=== PATIENT | male | born 1960 | race Caucasian/White ===

== ENCOUNTER 2019-10-03 06:31 | Emergency (ER) | payer OTHER ==
[~2019-10-03] VITALS: Ht 185.4 cm; Wt 90.7 kg
[2019-10-03] MEDS ORDERED: LIDOCAINE HCL 1% LOCAL INJ 20 ML VIAL ONE ×2 (06:47→07:30)
--- NOTE | 2019-10-03 07:22 | Emergency Department Note ---
History of Present Illnes History of Present Illness Chief Complaint: Skin Rash or Abscess History of Present Illness This is a 58 year old male , with no significant past medical history, who presents with a four-day history of worsening pain and swelling in the right inner gluteal area. There's been no drainage. The area is painful to touch, and there's been no drainage. Patient denies any history of previous abscesses. He denies any fever or chills, but he has been having some dry heaving. 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 He denies any other trauma to the buttocks. 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 Required: No Onset (how long ago): day(s) (4) Location: right inner gluteal area, near the rectum, but not involving the sphincter Quality: sharp, stabbing, aching Radiation: Reports non-radiation Severity: moderate Onset quality: sudden Duration (how long): day(s) (4) Timing of current episode: constant Progression: worsening Chronicity: new Context: Reports recent surgery (shoulder surgery 6 weeks ag0) Treatments prior to arrival: other (Tylenol) Risk factors: cycling on hard bicycle seat for 30 - 40 miles at a time Past Medical/Family History Physician Review I have reviewed the patient's past medical and family history. Any updates have been documented here. Past Medical History Recent Fever: No Clinical Suspicion of Infectio: Yes New/Unexplained Change in Ment: No Past Medical History: None Other Surgery: SHOULDER, KNEE, Social History Smoking Cessation: Never Smoker Counseling Performed: No Alcohol Use: Occasional Any Illegal Drug Use: No Physically hurt or threatened: No Family History Family history of heart diseas: No Other Any Pre-Existing Lines (PICC,: No Is patient up to date on immun: Yes Review of Systems Review of Systems Constitutional: Reports no symptoms; Denies chills, Denies fever, Denies weakness Cardiovascular: Denies chest pain, Denies palpitations Respiratory: Reports no symptoms Gastrointestinal: Reports nausea, Reports other (dry heaves) Genitourinary: Reports no symptoms Integumentary: Reports change in color, Reports other (red, tender lump in right inner gluteal cleft) Review of other systems: All other systems negative Physical Exam Related Data Allergies: Coded Allergies: No Known Allergies (Unverified , 10/03/19) Vital signs reviewed: Yes Physical Exam CONSTITUTIONAL Constitutional: Present well-developed, Present well-nourished; Absent ill appearing HENT HENT: Present normocephalic, Present atraumatic, Present oropharynx clear/m oist, Present nose normal HENT L/R: Present left ext ear normal, Present right ext ear normal EYES Eyes: Reports PERRL, Reports conjunctivae normal NECK Neck: Present ROM normal, Present supple PULMONARY Pulmonary: Present effort normal, Present breath sounds normal CARDIOVASCULAR Cardiovascular: Present regular rhythm, Present heart sounds normal, Present capillary refill normal, Present normal rate GASTROINTESTINAL Abdominal: Present soft, Present nontender, Present bowel sounds normal GENITOURINARY SKIN Skin: Present erythema, Present other (3 cm, oval shaped, erythematous, tender, raised area in right inner gluteal fold, near the rectal sphincter, but not involving the sphincter, slightly fluctuant, without drainage; consistent with a perirectal abscess.) MUSCULOSKELETAL NEUROLOGICAL PSYCHOLOGICAL Procedures Incision and Drain Emergent situation: Yes Type of anesthesia: local Risks and benefits discussed: Yes Verbal consent obtained: Yes Written consent obtained: No Consent given by: patient Prepped and draped in sterile: Yes Two patient identifiers confir: name, date of Identity confirmed by: patient Procedure verified: Yes Side verified: yes Site verified: yes Site marked: yes Type: abscess Size: 3 cm Site: anogenital (right perirectal area) Skin preparation: Betadine Anesthesia method: local infiltration (1% Lidocaine - 10 ml) Patient sedated: No Needle aspiration: No Incision type: single w marsupialization Incision depth: muscle Scalpel blade: 10 Wound management: probed and deloculated, irrigated with saline Drainage: serosanguinous Drainage amount: scant Wound treatment: wound left open Packing used: 04/03 in gauze Patient tolerance: tolerated well Procedure attestation: I performed the procedure Assessment & Plan Medical Decision Making MDM - Encourage warm tub soaks, as often as possible. Also, apply a heating pad to the area frequently, to help soften the abscess and promote further drainage. - You may take Ibuprofen 200 mg - 3 tabs (600 mg) every 6 hours, as needed, for pain and inflammation. - Follow-up if you develop worsening symptoms, including: fever, chills, vomiting, worsening pain, etc. Assessment & Plan Final Impression: (1) Perirectal abscess Depart Disposition: HOME, SELF-[facility] Meds Active Scripts Acetaminophen With Codeine (TYLENOL WITH CODEINE #3 TABLET) 1 Each Tablet, 1-2 TAB PO Q6H PRN for pain, #20 TAB 0 Refills Prov:JOANA MONTES MD 10/03/19 Cephalexin (CEPHALEXIN) 500 Mg Capsule, 1 TAB PO TID for infection for 10 Days, #30 CAP 0 Refills Prov:JOANA MONTES MD 10/03/19 Medications in the ED Lidocaine HCl 20 ml [facility]-MED ONCE .ROUTE ; Start 10/03/19 at 06:47; Stop 10/03/19 at 06:43; Status DC JOANA MONTES MD Oct 03, 2019 07:22
[2019-10-03] MEDS ORDERED: HYDROCODONE/APAP 5MG-325MG TAB ONE (07:29)
[2019-10-03] MEDS ORDERED: ONDANSETRON HCL 4 MG ORAL DISINTEGRATING TAB ONE (07:29)
[2019-10-03] MEDS ORDERED: ONDANSETRON HCL 4 MG ORAL DISINTEGRATING TAB PO ONE (07:30)
[2019-10-03] MEDS ORDERED: CEPHALEXIN500 MG PO (07:57)
[2019-10-03] MEDS ORDERED: TYLENOL WITH C1 EACH PO (07:58)
[2019-10-03] MEDS ORDERED: LIDOCAINE HCL 1% LOCAL INJ 20 ML VIAL INJ ONE (08:30)
== END 2019-10-03 08:44 | disposition home or self-care (01) ==
LOC: FSED 07:55
DX: K61.1 Rectal abscess (principal); R11.0 Nausea
CPT/HCPCS: 10060; 99283; J2001; Q0162

== ENCOUNTER 2019-10-29 06:15 | Emergency (ER) | payer OTHER ==
[~2019-10-29] VITALS: Ht 188 cm; Wt 90.7 kg
[~2019-10-29 06:15] MED LIST: CEPHALEXIN500 MG PO; TYLENOL WITH C1 EACH PO
--- NOTE | 2019-10-29 06:17 | Emergency Department Note ---
History of Present Illnes History of Present Illness History of Present Illness This is a 58 year old male has boil on his right medial knee about 1 week (He called it spider bite), he "popped" opened with drainage few days ago but it is not getting better. He was dx with COVID few days ago, currently on isolation Historian: Patient Arrival Mode: Car Dice Table Person Required: No Onset (how long ago): week(s) Radiation: Reports non-radiation Severity: moderate Onset quality: gradual Duration (how long): week(s) Timing of current episode: constant Progression: worsening Context: Reports recent illness Relieving factors: none, immobilization Exacerbating factors: none, movement Treatments prior to arrival: none Past Medical/Family History Physician Review I have reviewed the patient's past medical and family history. Any updates have been documented here. Past Medical History Past Medical History: None Other Surgery: SHOULDER, KNEE, Review of Systems Review of Systems Constitutional: Reports fever (due to COVID) EENTM: Reports no symptoms Cardiovascular: Reports no symptoms Respiratory: Reports no symptoms Gastrointestinal: Reports no symptoms Genitourinary: Reports no symptoms Musculoskeletal: Reports no symptoms Integumentary: Reports no symptoms Neurological: Reports no symptoms Psychological: Reports no symptoms Endocrine: Reports no symptoms Hematological/Lymphatic: Reports no symptoms Physical Exam Related Data Allergies: Coded Allergies: No Known Allergies (Unverified , 10/03/19) Vital signs reviewed: Yes Physical Exam CONSTITUTIONAL Constitutional: Present well-developed, Present well-nourished HENT HENT: Present normocephalic, Present atraumatic, Present oropharynx clear/moist, Present nose normal HENT L/R: Present left ext ear normal, Present right ext ear normal EYES Eyes: Reports PERRL, Reports conjunctivae normal NECK Neck: Present ROM normal PULMONARY Pulmonary: Present effort normal, Present breath sounds normal CARDIOVASCULAR Cardiovascular: Present regular rhythm, Present heart sounds normal, Present capillary refill normal, Present normal rate GASTROINTESTINAL Abdominal: Present soft, Present nontender, Present bowel sounds normal GENITOURINARY Genitourinary: Present exam deferred SKIN Skin: Present warm, Present dry, Present rash (erythema lesion right medial knee 3 x 3 cm, tender, small opening with oozing fluid, surrounding redness, no fluctulent), Present lesion MUSCULOSKELETAL Musculoskeletal: Present ROM normal NEUROLOGICAL Neurological: Present alert, Present oriented x 3, Present no gross motor or sensory deficits PSYCHOLOGICAL Psychological: Present mood/affect normal, Present judgement normal Assessment & Plan Medical Decision Making MDM abscess with cellulitis, already drained Assessment & Plan Final Impression: (1) Cellulitis and abscess of right lower extremity Depart Disposition: HOME, [facility] Meds Active Scripts Ibuprofen (IBUPROFEN IB) 200 Mg Tablet, 3 TAB PO Q6H PRN for pain, #60 Prov:JOSE MARIA MATOS MD 10/29/19 Acetaminophen/Codeine* (TYLENOL # 3*) 1 Ea Tab, 1 TAB PO Q4HR PRN for pain or cough, #30 Prov:JOSE MARIA MATOS MD 10/29/19 Doxycycline Hyclate (DOXYCYCLINE HYCLATE) 100 Mg Capsule, 100 MG PO BID, #20 TAB 0 Refills Prov:JOSE MARIA MATOS MD 10/29/19 Clindamycin Hcl (CLINDAMYCIN HCL) 300 Mg Capsule, 300 MG PO Q6H, #40 Prov:JOSE MARIA MATOS MD 10/29/19 Discontinued Scripts Acetaminophen With Codeine (TYLENOL WITH CODEINE #3 TABLET) 1 Each Tablet, 1-2 TAB PO Q6H PRN for pain, #20 TAB 0 Refills Prov:JOANA MONTES MD 10/03/19 Cephalexin (CEPHALEXIN) 500 Mg Capsule, 1 TAB PO TID for infection for 10 Days, #30 CAP 0 Refills Prov:JOANA MONTES MD 10/03/19 JOSE MARIA MATOS MD Oct 29, 2019 06:17
[2019-10-29] MEDS ORDERED: CLINDAMYCIN HCL 150 MG CAP PO ONE (06:30)
[2019-10-29] MEDS ORDERED: CEFTRIAXONE SOD 1 GM VIAL IM ONE (06:30)
[2019-10-29] MEDS ORDERED: IBUPROFEN IB200 MG PO (06:37)
[2019-10-29] MEDS ORDERED: TYLENOL # 31 EA PO (06:37)
[2019-10-29] MEDS ORDERED: DOXYCYCLINE HY100 MG PO (06:37)
[2019-10-29] MEDS ORDERED: CLINDAMYCIN HC300 MG PO (06:37)
[2019-10-29] MEDS ORDERED: CEFTRIAXONE SOD 1 GM VIAL ONE (06:52)
[2019-10-29] MEDS ORDERED: LIDOCAINE HCL 1% LOCAL INJ 20 ML VIAL ONE (06:53)
[2019-10-29 07:08] VITALS: BP 153/80
--- OUTSIDE RECORDS SUMMARY | 2019-10-29 21:07 | XMS REPORT | Clinical Summary ---
Author Author [facility] [place] [facility] Address Unknown Phone Unavailable Care Team Providers Care Supervisor Plastics Name Role Phone Tanvir Dunn MD PCP Allergies No Known Allergies Medications End Date Status Medication Sig Dispensed Refills Start Date Active gabapentin (Neurontin) Take 1 tablet 30 capsule 0 0 400 mg capsule morning of 0 surgery po with a sip of water, then take 1 tablet po qhs Active celecoxib (CeleBREX) 200 Take 400mg 60 capsule 0 0 202 MG capsule morning of 0 surgery with a sip of water, then take 1 tablet po BID 09/11/2019 promethazine (PHENERGAN) Take 1 tablet 10 tablet 0 25 MG tablet (25 mg total) 0 by mouth every 6 (six) hours as needed for nausea for up to 30 days. 08/19/2019 cephalexin (KEFLEX) 500 1 po after 4 capsule 0 MG capsule surgery with 0 pm meal and tid afterwards 09/12/2019 HYDROcodone-acetaminophen chronic pain. 20 tablet 0 ([place]) 10-325 mg per 1 PO Q 4-6 H 0 tabletIndications: PRN PAIN chronic pain Active Problems Problem Noted Date Primary osteoarthritis of left shoulder 08/05/2019 Overview: Added automatically from request for lee rgery [id number] Resolved Problems Problem Noted Date Resolved Date Loose body of left shoulder 08/05/2019 08/17/2019 Overview: Added automatically from request for jesus hammondery [id number] Partial nontraumatic rupture of rotator cuff, left 020 08/17/2019 Overview: Added automatically from request for lee rgery [id number] Encounters Care Team Description Date Type Specialty Glenys Sauceda MA Primary osteoarthritis of left shoulder (Primary Dx); Loose body of left shoulder 10/21/2019 Orders Only Orthopedic Surgery Jeremías, Milton R., MD Loose body of left shoulder (Primary Dx) ; Primary osteoarthritis of left shoulder 09/29/2019 Office Visit Orthopedic Surgery 09/29/2019 Travel Milton Veronica MD Primary osteoarthritis of left shoulder (Primary Dx); Loose body of left shoulder; Partial nontraumatic rupture of rotator cuff, left 08/20/2019 Office Visit Orthopedic Surgery 08/20/2019 Travel Debbie Rudd RN 08/18/2019 Telephone Anesthesiology Milton Veronica MD Left shoulder arthroscopy with loose bod y removal, rotator cuff repair, graft augmentation, bone marrow aspiration/injection, biceps tenodesis 08/17/2019 Surgery General Surgery Casey Hernandez MD Maxwell, Matthew John 08/17/2019 Anesthesia General Surgery Event Milton Veronica MD Primary osteoarthritis of left shoulder; Loose body of left shoulder; Partial nontraumatic rupture of rotator cuff, left 08/17/2019 Hospital General Surgery Encounter 08/17/2019 Travel Glenys Sauceda MA 08/12/2019 Refill Orthopedic Surgery Milton Veronica MD Pre-op testing (Primary Dx) 08/10/2019 Pre-Admit Pre-Admission Testi ng Testing Appointment 08/09/2019 Travel 08/06/2019 Travel Glenys Sauceda MA 08/05/2019 Orders Only Orthopedic Surgery Glenys Sauceda MA Primary osteoarthritis of left shoulder (Primary Dx); Loose body of left shoulder; Partial nontraumatic rupture of rotator cuff, left 08/05/2019 Prep for Orthopedic Surgery Surgery Milton Veronica MD Primary osteoarthritis of left shoulder (Primary Dx); Loose body in joint of left shoulder region; Partial nontraumatic rupture of rotator cuff, left 08/04/2019 Office Visit Orthopedic Surgery 08/04/2019 Travel Milton Veronica MD Primary osteoarthritis, left shoulder 07/30/2019 Hospital Radiology Encounter Milton Veronica MD Primary osteoarthritis, left shoulder 07/30/2019 Hospital Radiology Encounter 07/30/2019 Travel 07/29/2019 Travel Milton Veronica MD Primary osteoarthritis, left shoulder (P rimary Dx) 06/21/2019 Transcribe Access Orders 06/21/2019 Travel 06/18/2019 Travel Milton Veronica MD Primary osteoarthritis of left shoulder (Primary Dx); Left shoulder pain, unspecified chronicity 06/09/2019 Office Visit Orthopedic Surgery 06/09/2019 Travel after 10/28/2018 Family History Medical History Relation Name Comments Alcohol abuse Father No Known Problems Mother Relation Name Status Comments Father Mother Social History Date Tobacco Use Types Packs/Day Years Used Never Smoker 0 0 Smokeless Tobacco: Never Used Drinks/Week oz/Week Comments Alcohol Use Never Sex Assigned at Date Recorded Not on file Industry Job Start Date Occupation Not on file Not on file Not on file Travel End Travel History Travel Start No recent travel history available. Date Recorded COVID-19 Exposure Response 09/29/2019 1:24 PM CDT In the last month, have you been in contact with No / Unsure someone who was confirmed or suspected to have Coronavirus / COVID-19? Last Filed Vital Signs Reading Time Taken Comments Vital Sign 134/78 09/29/2019 1:48 PM CDT Blood Pressure 65 09/29/2019 1:48 PM CDT Pulse 36.1 C (97 F) 08/17/2019 1:30 PM CDT Temperature 16 08/17/2019 1:30 PM CDT Respiratory Rate 96% 08/17/2019 1:30 PM CDT Oxygen Saturation - - Inhaled Oxygen Concentration 90.7 kg (200 lb) 09/29/2019 1:48 PM CDT Weight 188 cm (6' 2") 09/29/2019 1:48 PM CDT Height 25.68 09/29/2019 1:48 PM CDT Body Mass Index Plan of Treatment Care Team Description [place] [id number] [address] [phone] 11/10/2019 Office Visit Orthopedic Surgery Health Maintenance Due Date Last Done Comments COLONOSCOPY SCREENING 12/11/2009 SHINGLES VACCINES (#1) 12/11/2009 INFLUENZA VACCINE 10/30/2019 Implants Device Identifier Shelf Expiration Date Model / Serial / L ot Implanted Type Area Manufactur er 04/19/2022 [id number] / / [id number] Tendon Jeronimo - [id number] Left: Shou lder Implanted: Qty: 1 on 08/17/2019 by IMPLANT Milton Veronica MD at [facility] [employer] 12/28/2021 [id number] / / [id number] Arthro Bioindctive Implant W Del 1 IPM Lef t: Shoulder Large - [id number] IMPLANT Implanted: Qty: 1 on 08/17/2019 by Milton Navarro MD at [facility] 03/15/2022 [id number] / / [id number] Bone Anchors 3 W Arthro Del Sys IPM Left: Shoulder Advncd - [id number] IMPLANT Implanted: Qty: 1 on 08/17/2019 by Milton Navarro MD at [facility] 09/27/2021 [id number] / / [id number] [place] Sut Lupine Br W/ Ds Orthopedic Full Body: DEP UY Orthocord - [id number] Trauma Shoulder MITEK Implanted: Qty: 1 on 08/17/2019 by Implants Milton Veronica MD at [facility] Procedures Comments Procedure Name Priority Date/Time Associated Diag nosis UT AN ELECTIVE Routine 08/17/2019 ENDOTRACHEAL AIRWAY 10:22 AM CDT ARTHROSCOPY, SHOULDER 08/17/2019 Primary osteoar thritis of 10:00 AM CDT left shoulder Loose body of left shoulder Partial nontraumatic rupture of rotator cuff, left Case Notes Needed Christian [place] Mitek anchors, AJ [employer] BMAC, Amanda Trinkle Regeneten allograft, EST 90 MINUTES Special Needs Needed Christian [place] Mitek anchors (CHRISTIAN CONFIRMED 5/15 FOR 08/16 1030 CASE), AJ [employer] BMAC (AJ CONFIRMED 5/15 FOR 08/16 1030 CASE), Amanda Trinkle Regeneten allograft (MICHELLE CONFIRMED 515 FOR 08/16 1030 CASE), EST 90 MINUTES UT AN PERIPHERAL BLOCK Routine 08/17/2019 PROCEDURE FOR PAIN 9:39 AM CDT COVID-19 QUALITATIVE PCR Routine 08/10/2019 Pre-o p testing 8:54 AM CDT HC COMPLETE BLD COUNT Routine 08/10/2019 Pre-op t esting W/AUTO DIFF 8:40 AM CDT MRI SHOULDER W IA Routine 07/30/2019 Primary oste oarthritis, CONTRAST LEFT 11:09 AM CDT left shoulder FL ARTHROGRAM SHOULDER Routine 07/30/2019 Primary osteoarthritis, LEFT 9:05 AM CDT left shoulder XR SHOULDER 2+ VW LEFT Routine 06/09/2019 Left sh oulder pain, 3:47 PM CDT unspecified chronicity after 10/28/2018 Results * Airway (08/17/2019 10:22 AM CDT) Narrative Performed At Donn Mena CRNA 2019 10:23 AM Airway Date/Time: 08/17/2019 10:22 AM Performed by: Donn Mena CR NA Authorized by: Casey Hernandez MD Location: OR Urgency: Elective Difficult Airway: No Resident/CNC MILL OPERATOR/AA: Donn Mena CRNA Performed by: resident/CNC MILL OPERATOR/AA Preoxygenated with 100% O2: Yes C-spine Precautions Maintained Througho ut: Yes Mask Ventilation: Not attempted Final Airway Type: Endotracheal airwa y Final Endotracheal Airway: ETT Cuffed: Yes Technique Used: Direct laryngoscopy Devices/Methods Used in Placement: Teodoro ugie Insertion Site: Oral Blade Type: Flores Laryngoscope Blade/Videolaryngoscope Bl irving Size: 2 ETT Size (mm): 7.5 Cuff at minimum occlusion pressure: Yes Measured from: Lips ETT to Lips (cm): 23 Placement Verified by: CO2 detection an d equal breath sounds Laryngoscopic view: Grade IIb - view of arytenoids or posterior of glottis only Rapid Sequence Induction (RSI): No Modified RSI: Yes Number of Attempts at Approach: 1 * Peripheral Block (08/17/2019 9:39 AM CDT) Narrative Performed At Casey Hernandez MD 08/17/2019 9:40 AM Peripheral Block Performed by: Casey Hernandez MD Authorized by: Casey Hernandez MD Patient Location: Pre-op Start Time: 08/17/2019 9:25 AM End Time: 08/17/2019 9:29 AM Reason for Block: at surgeon's request, post-op pain management, procedure for pain Staff: Anesthesiologist: Casey Hernandez rd, MD Performed by: Anesthesiologist Preprocedure: patient identified, IV ch ecked, site and side verified, risks and benefits discussed, procedure verified, surgical consent complete, patient position confirmed, m onitors and equipment checked, pre-op evaluation complete and site kecia bloom Peripheral Nerve Block: Patient Position: Supine Prep: ChloraPrep Monitoring: Blood pressure monitori ng, continuous pulse oximetry and heart rate Block Type: Interscalene Laterality: Left Injection Technique: Single injection Procedures: ultrasound guided Ultrasound documentation: Still image s obtained and stored Anesthesia block local: Exparel. Needle: Needle Type: Short-bevel Needle Gauge: 21 G Needle Length: 10 cm Assessment: Injection Assessment: Visualized ne edle/local anesthetic surrounding nerve, visualized pertinent vascular st ructures and nerves, needle tip visualized at all times during injectio n of medication, no symptoms of intraneural/intravenous injection and i ntermittent aspiration during local anesthetic administration Paresthesia Pain: None Heart Rate Change: No Slow Fractionated Injection: Yes Block outcome: No apparent complica tions, patient comfortable and patient tolerated procedure well Notes: Sterile technique used with hat, ovidio ves and mask * COVID-19 qualitative PCR (08/10/2019 8:54 AM CDT) Interpretation Negative results do not [facility] preclude 2019-nCoV infection [facility] and should not be used as the HOSPITAL sole basis for treatment or other patient management decisions. Negative results must be combined with clinical observations, patient history, and epidemiological information. COVID-19 Not-Detected Not-Detected [facility] qualitative PCR [facility] result HOSPITAL COVID-19 See link below for PDF Lab [facility] qualitative PCR ReportComment: Case Number: [facility] [id number] [facility]PITAL Specimen Performing Organization Address City/State/Zipcode Ph one Number [facility] DEPARTMENT OF [address] [place] [address] PATHOLOGY AND GENOMIC MEDICINE [address] * CBC with platelet and differential (08/10/2019 8:40 AM CDT) WBC 5.59 4.50 - 11.00 k/uL [facility] RBC 5.48 4.40 - 6.00 m/uL [facility] HGB 16.9 14.0 - 18.0 g/dL [facility] HCT 48.8 41.0 - 51.0 % [facility] MCV 89.1 82.0 - 100.0 fL [facility] MCH 30.8 27.0 - 34.0 pg [facility] MCHC 34.6 31.0 - 37.0 g/dL [facility] RDW - SD 40.2 37.0 - 55.0 fL [facility] MPV 8.7 (L) 8.8 - 13.2 fL [facility] Platelet count 168 150 - 400 k/uL [facility] Nucleated RBC 0.00 /100 WBC [facility] Neutrophils 59.4 39.0 - 69.0 % [facility] Lymphocytes 24.0 (L) 25.0 - 45.0 % [facility] Monocytes 8.4 0.0 - 10.0 % [facility] Eosinophils 6.6 (H) 0.0 - 5.0 % [facility] Basophils 1.1 (H) 0.0 - 1.0 % [facility] Immature 0.5Comment: "Immature 0.0 - 1.0 % [facility] granulocytes granulocytes" (promyelocytes, [facility] THE myelocytes, metamyelocytes) [facility] Specimen Blood Performing Organization Address [facility] Ph one Number [facility] [place] [address], [address] [place] [address] PATHOLOGY AND GENOMIC MEDICINE [facility] THE [address] [facility] [phone] * MRI SHOULDER W IA CONTRAST LEFT (07/30/2019 11:09 AM CDT) Specimen Narrative Performed At EXAMINATION: MRI SHOULDER W IA CONTRAST LEFT RA [facility]ANT CLINICAL HISTORY: M19.012 Primary ost eoarthritis left shoulder, PRIMARY OSTEOARTHRITIS OF LEFT SHOULDER TECHNIQUE: Multiplanar multisequence MR images of the left shoulder were obtained with intra-articular contrast. COMPARISON: None. FINDINGS: Supraspinatus tendinosis, fra carlene, and moderate and high-grade partial-thickness tearing are seen at t he articular and bursal surface of the distal tendon. There is also partial thickness tearing of the anterior infraspinatus tendon footprint. Remainder of the rotator cuff is intact , and there is normal muscle bulk. Infraspinatus muscle is diffusely incre ased in signal, a finding related to denervation myositis secondary to a 23 x 14 x 14 mm ganglion within the spinoglenoid notch compressing the supr ascapular nerve. Tendinosis, partial tearing, and tenosy novitis of the long of the horizontal and proximal vertical segments of the long head biceps tendon. Chronic degeneration, fraying, tearing, and scar remodeling of the labrum in the superior, anterior, and posterior quadr ants. Mild osteoarthritis of the acromioclavi cular joint with inferior osteophyte. Acromion is type I. No inferior displac ement, downsloping, or os acromiale. No bursitis. Areas of cartilage thinning and focal f ull-thickness loss in the glenohumeral joint. Large crown osteophyte of the hu meral head. Smaller circumferential osteophyte of the glenoid rim. Joint is well-distended with contrast, and there is mild synovitis. A couple of subcentimeter ossified loose bodies are located within the subcoracoid bursa. IMPRESSION: 1. Chronic moderate and high-grade part ial-thickness tearing of the supraspinatus tendon. No full-thickness retracted tear. 2. Tendinosis and chronic partial thick ness tearing of the long of the biceps tendon with mild tenosynovitis. 3. Chronic multifocal labral degenerati on and nondisplaced tearing. 4. Moderately severe osteoarthrosis of the glenohumeral joint with mild synovitis and small ossified bodies in the subcoracoid bursa. 5. 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 Thank you for allowing us to participat e in the care of your patient. [facility]-[id number] Procedure Note Hm Interface, Radiology Results - 07/30/2019 11:41 AM CDT EXAMINATION: MRI SHOULDER W IA CONTRAST LEFT CLINICAL HISTORY: M19.012 Primary osteoarthritis left shoulder, PRIMARY OSTEOARTHRITIS OF LEFT SHOULDER TECHNIQUE: Multiplanar multisequence MR images of the left shoulder were obtained with intra-articular contrast. COMPARISON: None. FINDINGS: Supraspinatus tendinosis, fraying, and moderate and high-grade partial-thickness tearing are seen at the articular and bursal surface of the distal tendon. There is also partial thickness tearing of the anterior infraspinatus tendon footprint. Remainder of the rotator cuff is intact, and there is normal muscle bulk. Infraspinatus muscle is diffusely increased in signal, a finding related to denervation myositis secondary to a 23 x 14 x 14 mm ganglion within the spinoglenoid notch compressing the suprascapular nerve. Tendinosis, partial tearing, and tenosynovitis of the long of the horizontal and proximal vertical segments of the long head biceps tendon. Chronic degeneration, fraying, tearing, and scar remodeling of the labrum in the superior, anterior, and posterior quadrants. Mild osteoarthritis of the acromioclavicular joint with inferior osteophyte. Acromion is type I. No inferior displacement, downsloping, or os acromiale. No bursitis. Areas of cartilage thinning and focal full-thickness loss in the glenohumeral joint. Large crown osteophyte of the humeral head. Smaller circumferential osteophyte of the glenoid rim. Joint is well-distended with contrast, and there is mild synovitis. A couple of subcentimeter ossified loose bodies are located within the subcoracoid bursa. IMPRESSION: 1. Chronic moderate and high-grade parti al-thickness tearing of the supraspinatus tendon. No full-thickness retracted tear. 2. Tendinosis and chronic partial thickn ess tearing of the long of the biceps tendon with mild tenosynovitis. 3. Chronic multifocal labral degeneratio n and nondisplaced tearing. 4. Moderately severe osteoarthrosis of t he glenohumeral joint with mild synovitis and small ossified bodies in the subcoracoid bursa. 5. Spinoglenoid notch ganglion compressi ng the suprascapular nerve and causing infraspinatus denervation myositis. Thank you for allowing us to participate in the care of your patient. [facility]-[id number] Performing Organization Address City/State/Zipcode Ph one Number [facility] [address] [place] [address] * FL Arthrogram Shoulder Left (07/30/2019 9:05 AM CDT) Specimen Narrative Performed At EXAMINATION: FL ARTHROGRAM SHOULDER LEFT ALFRED Lucero CLINICAL HISTORY: M19.012 Primary ost eoarthritis left shoulder, PRIMARYU OSTEOARTHRITIS OF LEFT SHOULDER COMPARISON: None. TECHNIQUE: Informed consent was obtained after a d iscussion of the risks and benefits of the procedure. A preprocedure timeout w as performed. The left shoulder was sterilely prepped and draped in usual fashion. 1% buffered lidocaine was used for local anesthesia . Under fluoroscopic guidance, a 22-gauge spinal needle was inserted into the left glenohumeral joint. Approximately 10 cc of a mixture of dilute gadolinium solution and Omnipaque was injected und er intermittent fluoroscopy. The needle was then removed, and a bandage was applied. Preprocedural internal and external rot ation AP radiographs of the left shoulder, and spot fluoroscopic arthrog raphic images of the left shoulder in internal and external rotation, were th en obtained. Total fluoroscopy time: 1 minute 6 seco nds Total number of fluoroscopic images: 3 Arthrographic images demonstrate distri bution of contrast within the glenohumeral joint space, without contr ast entering the subacromial subdeltoid bursa to imply a full-thickness rotator cuff tear. The radiographs of the left shoulder demonstrate an old healed left proximal humeral fracture a nd degenerative arthritic changes in the glenohumeral and acromial clavicular wandy ints. IMPRESSION: Uncomplicated left shoulder arthrogram for MRI. The MR arthrogram will be reported separately. [id number] Procedure Note Hm Interface, Radiology Results Incoming - 07/30/2019 9:29 AM CDT EXAMINATION: FL ARTHROGRAM SHOULDER LEFT CLINICAL HISTORY: M19.012 Primary osteoarthritis left shoulder, PRIMARYU OSTEOARTHRITIS OF LEFT SHOULDER COMPARISON: None. TECHNIQUE: Informed consent was obtained after a discussion of the risks and benefits of the procedure. A preprocedure timeout was performed. The left shoulder was sterilely prepped and draped in usual fashion. 1% buffered lidocaine was used for local anesthesia. Under fluoroscopic guidance, a 22-gauge spinal needle was inserted into the left glenohumeral joint. Approximately 10 cc of a mixture of dilute gadolinium solution and Omnipaque was injected under intermittent fluoroscopy. The needle was then removed, and a bandage was applied. Preprocedural internal and external rotation AP radiographs of the left shoulder, and spot fluoroscopic arthrographic images of the left shoulder in internal and external rotation, were then obtained. Total fluoroscopy time: 1 minute 6 seconds Total number of fluoroscopic images: 3 Arthrographic images demonstrate distribution of contrast within the glenohumeral joint space, without contrast entering the subacromial subdeltoid bursa to imply a full-thickness rotator cuff tear. The radiographs of the left shoulder demonstrate an old healed left proximal humeral fracture and degenerative arthritic changes in the glenohumeral and acromial clavicular joints. IMPRESSION: Uncomplicated left shoulder arthrogram for MRI. The MR arthrogram will be reported separately. [id number] Performing Organization Address [facility] Ph one Number [facility] [address] [place] [address] * XR Shoulder 2+ Vw Left (06/09/2019 3:47 PM CDT) Specimen Narrative Performed At [facility] AP, axillary lateral, and outlet views of the left shoulder show significant degenerative changes with a large posterior glenoid osteophyte and an inferior humeral osteophyte. T he acromioclavicular joint is arthritic. The surrounding soft tissu es are normal. 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
--- OUTSIDE RECORDS SUMMARY | 2019-10-29 21:07 | XMS REPORT | Continuity of Care Document ---
Author Author [facility] t Organization [facility] Address [address] [place] [address] Phone Unavailable Care Team Providers Care Director [employer] Name Role Phone NONSTAFF PCP Unavailable Glenys Sauceda MA Attphys Unavailable Abdiel Corcoran MD Attphys Tobin BILLY, Debbie Attphys Unavailable David MILLS, Danny Peña Attphys Tanvir Lee Attphys MILTON CORCORAN Admphys Unavailable Payers Payer Name Policy Type Policy Number Effective Date Expiration Date [facility] Ppo [id number] [facility] MISC LIMITED BENEFIT PLANMISC LIMITED BE NEFIT PLANxxxxxxxxx1-PresentCommercial xxxxxxxxx 2018 00: 00:00 Ace Pacheco Problems Condition Name Condition Details Condition Category Status Onset Date Resolution Date Last Treatment Date Treating Clinician Comments Source Primary osteoarthritis of left shoulder Primary osteoarthrit is of left shoulder Disease Active 2019-08-05 00:00:00 Overv iew: Added automatically from request for surgery [id number] Ace Pacheco Perirectal abscess Problem Active [facility] Cellulitis Problem Active [facility] Cellulitis and abscess of right lower extremity Problem Active [facility] Loose body of left shoulder Loose body of left shoulder Disease Resolved 2019-08-05 00:00:00 2019-08-17 00:00:00 2019-08-17 12:13:39 Ace Pacheco Partial nontraumatic rupture of rotator cuff, left Par tial nontraumatic rupture of rotator cuff, left Disease Resolved 2019-08-05 00:00:00 2019-08-17 0 0:00:00 2019-08-17 12:13:40 Ace Pacheco Allergies, Adverse Reactions, Alerts This patient has no known allergies or adverse reactions. Family History Family Member Diagnosis Comments Start Date Stop Date Source Natural father Alcohol abuse Ace Pacheco Natural mother No Known Problems Loida ruthie Pacheco Social History Social Habit Start Date Stop Date Quantity Comments Source Sex Assigned At Loida Pacheco Exposure to SARS-CoV-2 (event) Not sure Ace Pacheco Alcohol intake 2019-09-29 00:00:00 2019-09-29 00:00:00 Lifetime non-drinker (finding) Ace Pacheco Smoking Status Start Date Stop Date Source Never smoker Ace Potts t Medications Ordered Medication Name Filled Medication Name Start Date Stop Da te Current Medication? Ordering Clinician Indication Dosage Frequency Signature (SIG) Comments Components Source Acetaminophen/Codeine Phosphate (Tylenol # 3*) 1 Ea TA B Acetaminophen/Codeine Phosphate (Tylenol # 3*) 1 Ea TAB 2019-10-29 06:37:00 Yes 1 Every 4 Hours as needed for Pain Or Cough [facility] Clindamycin Hcl Clindamycin Hcl 2019-10-29 06:37:00 Yes 300 Every 6 Hours [facility] Doxycycline Hyclate Doxycycline Hyclate 2019-10-29 06:37:00 Yes 100 Twice A Day [facility] Ibuprofen (Ibuprofen Ib) 200 Mg TABLET Ibuprofen (Ibuprofen Ib) 200 Mg TABLET 2019-10-29 06:37:00 Yes 3 Every 6 Hours as n eeded for Pain [facility] Acetaminophen With Codeine (Tylenol With Codeine #3 Ta blet) 1 Each TABLET Acetaminophen With Codeine (Tylenol With Codeine #3 Tablet) 1 Each TABLET 2019-10-03 07:58:00 2019-10-29 00:00:00 No Every 6 Hours as needed for Pain [facility] Cephalexin Cephalexin 2019-10-03 07:57:00 2019-10-29 00:00:00 No 1 Three Times A Day for Infection [facility] HYDROcodone-acetaminophen ([place]) 10-325 mg per tablet 2019-08-13 00:00:00 2019-09-12 23:59:00 No chronic pain chronic pain. 1 PO Q 4-6 H PRN PAIN Ace Pacheco gabapentin (Neurontin) 400 mg capsule 2019-08-12 00:00:00 Y es Take 1 tablet morning of surgery po with a sip of water, then take 1 tablet po qhs Ace Pacheco celecoxib (CeleBREX) 200 MG capsule 2019-08-12 00:00:00 Yes Take 400mg morning of surgery with a sip of water, then take 1 tablet po BID Ace Pacheco promethazine (PHENERGAN) 25 MG tablet 2019-08-12 00:00 :00 2019-09-11 23:59:00 No 25mg Q6H Take 1 tablet ( 25 mg total) by mouth every 6 (six) hours as needed for nausea for up to 30 days. Loida Pacheco cephalexin (KEFLEX) 500 MG capsule 2019-08-12 00:00:00 202 23:59:00 No 1 po after surgery with pm meal and tid afterwards Ace Pacheco Vital Signs Vital Name Observation Time Observation Value Comments Source Body Temperature 2019-10-29 07:08:00 98.9 [degF] [facility] Weight 2019-10-29 06:33:00 200 [lb_av] [facility] BMI (Body Mass Index) 2019-10-29 06:33:00 25.7 kg/m2 [facility] Weight 2019-10-03 07:09:00 200 [lb_av] [facility] BMI (Body Mass Index) 2019-10-03 07:09:00 26.4 kg/m2 [facility] Systolic blood pressure 2019-09-29 13:48:00 134 mm[Hg] Ace Pacheco Diastolic blood pressure 2019-09-29 13:48:00 78 mm[Hg] Ace Pacheco Heart rate 2019-09-29 13:48:00 65 /min Ace Pacheco Body height 2019-09-29 13:48:00 188 cm Ace Pacheco Body weight 2019-09-29 13:48:00 90.719 kg Ace Pacheco BMI 2019-09-29 13:48:00 25.68 kg/m2 Ace Pacheco Body temperature 2019-08-17 13:30:00 36.11 Marlee Hanny Pacheco Respiratory rate 2019-08-17 13:30:00 16 /min Hanny Pachceo Oxygen saturation in Arterial blood by Pulse oximetry 08-16 13:30:00 96 /min Ace Pacheco Procedures Procedure Date / Time Performed Performing Clinician Sourc e MN AN ELECTIVE ENDOTRACHEAL AIRWAY 2019-08-17 10:22:22 Balaji Mena ARTHROSCOPY, SHOULDER 2019-08-17 10:00:00 JeremíasMilton MN AN PERIPHERAL BLOCK PROCEDURE FOR PAIN 2019-08-17 09:39:1 3 Casey Hernandez COVID-19 QUALITATIVE PCR 2019-08-10 08:54:00 Milton Corcoran HC COMPLETE BLD COUNT W/AUTO DIFF 2019-08-10 08:40:00 Hester, Ro naljuan david Pacheco MRI SHOULDER W IA CONTRAST LEFT 2019-07-30 11:09:34 Milton Corcoran [place] ARTHROGRAM SHOULDER LEFT 2019-07-30 09:05:00 Milton Corcoran XR SHOULDER 2+ VW LEFT 2019-06-09 15:47:07 Milton Corcoran Plan of Care Planned Activity Planned Date Details Comments Source Future Scheduled Test 2019-10-30 00:00:00 INFLUENZA VACCINE [code = INFLUENZA VACCINE] Ace Pacheco Future Scheduled Test 2009-12-11 00:00:00 COLONOSCOPY SCREEN ING [code = COLONOSCOPY SCREENING] Ace Pacheco Future Scheduled Test 2009-12-11 00:00:00 SHINGLES VACCINES (#1) [code = SHINGLES VACCINES (#1)] Ace Pacheco Instructions Cellulitis [facility] Instructions Rash - Nonspecific [facility] Encounters Start Date/Time End Date/Time Encounter Type Admission Type [facility] Care Department Encounter ID Source 2019-10-29 06:20:00 2019-10-29 07:11:00 Departed Emergency Room [facility] [id number] [facility] 2019-10-03 07:55:00 2019-10-03 08:44:00 Departed Emergency Room [facility] [id number] [facility] 2019-09-29 00:00:00 2019-09-29 00:00:00 Outpatient JEREMÍAS, MILTON Graf [facility] [id number] [facility] 2019-08-20 00:00:00 2019-08-20 00:00:00 Outpatient JEREMÍAS, MILTON H [facility] [id number] [facility] 2019-08-17 00:00:00 2019-08-17 00:00:00 Outpatient JEREMÍAS, MILTON H [facility] [id number] [facility] 2019-08-10 00:00:00 2019-08-10 00:00:00 Outpatient JEREMÍAS, MILTON H [facility] [id number] [facility] 2019-08-04 00:00:00 2019-08-04 00:00:00 Outpatient JEREMÍAS, MILTON H [facility] [id number] [facility] 2019-07-30 00:00:00 2019-07-30 00:00:00 Outpatient JEREMÍAS, MILTON H [facility] [id number] [facility] 2019-07-30 00:00:00 2019-07-30 00:00:00 Outpatient JEREMÍAS, MILTON H [facility] [id number] [facility] 2019-06-09 00:00:00 2019-06-09 00:00:00 Outpatient JEREMÍAS, MILTON H [facility] [id number] [facility] 2019-06-09 00:00:00 2019-06-09 00:00:00 Outpatient JEREMÍAS, MILTON H [facility] [id number] [facility] Results Test Description Test Time Test Comments Results Result Comments Source Airway 2019-08-17 10:22:22 Rajesh Mena CRNA 08/17/2019 10:23 AMAirwayDate/Time: 08/17/2019 10:22 AMPerformed by: Donn Mena CRNAAuthorized by: Casey Hernandez MD Location: ORUrgency: ElectiveDiffi cult Airway: No Resident/ULTRASOUND MANAGER/AA: Donn Mena CRNAPerformed by: resident/ULTRASOUND MANAGER/AAPreoxygenated with 100% O2: Yes C-spine Precautions Maintained Throughout: Yes Mask Ventilation: Not attemptedFinal Airway Type: Endotracheal airwayFinal Endotracheal Airway: ETTCuffed: Yes Technique Used: Direct laryngoscopyDevices/Methods Used in Placement: BougieInsertion Site: OralBlade Type: MillerLaryngoscope Blade/Videolaryngoscope Blade Size: 2ETT Size (mm): 7.5Cuff at minimum occlusion pressure: Yes Measured from: LipsETT to Lips (cm): 23Placement Verified by: CO2 detection and equal breath sounds Laryngoscopic view: Grade IIb - view of arytenoids or posterior of glottis onlyRapid Sequence Induction (RSI): No Modified RSI: Yes Number of Attempts at Approach: 1 c[facility]e [facility] Peripheral Block 2019-08-17 09:39:13 Noreen Hernandez MD 08/17/2019 9:40 AMPeripheral BlockPerformed by: Casey Hernandez MDAuthorized by: Casey Hernandez MD Patient Location: Pre-opStart Time: 08/17/2019 9:25 AMEnd Time: 08/17/2019 9:29 AMReason for Block: at surgeon's request, post-op pain management, procedure for pain Staff: Anesthesiologist: Casey Hernandez MD Performed by: AnesthesiologistPreprocedure: patient identified, IV checked, site and side verified, risks and benefits discussed, procedure verified, surgical consent complete, patient position confirmed, monitors and equipment checked, pre-op evaluation complete and site marked Peripheral Nerve Block: Patient Position: Supine Prep: ChloraPrep Monitoring: Blood pressure monitoring, continuous pulse oximetry and heart rateBlock Type: InterscaleneLaterality: LeftInjection Technique: Single injectionProcedures: ultrasound guided Ultrasound documentation: Still images obtained and storedAnesthesia block local: Exparel.Needle: Needle Type: Short-bevel Needle Gauge: 21 G Needle Length: 10 cmAssessment: Injection Assessment: Visualized needle/local anesthetic surrounding nerve, visualized pertinent vascular structures and nerves, needle tip visualized at all times during injection of medication, no symptoms of intraneural/intravenous injection and intermittent aspiration during local anesthetic administration Paresthesia Pain: None Heart Rate Change: No Slow Fractionated Injection: Yes Block outcome: No apparent complications, patient comfortable and patient tolerated procedure wellNotes: Sterile technique used with hat, gloves and mask Ace Pacheco COVID-19 qualitative PCR 2019-08-10 17:02:16 Test Item Interpretation (test code = 5760851) Negative results do not preclude 2019-nCoV infection and should not be used as the sole basis for treatment or other patient management decisions. Negative results must be combined with clinical observations, patient history, and epidemiological information. COVID-19 qualitative PCR result (test code = 09623-5) Not-Detect ed Not-Detected COVID-19 qualitative PCR (test code = 7070) See link below for P DF Lab Report [facility] with platelet and [id number] 08:58:34* Test Item Value Reference Range Interpretation Comments WBC (test code = 36814-4) 5.59 4.50- 11.00 k/uL RBC (test code = 53847-8) 5.48 m/uL 4.4-6 HGB (test code = 718-7) 16.9 g/dL 14-18 HCT (test code = 4544-3) 48.8 % 41-51 MCV (test code = 787-2) 89.1 fL 82-100 MCH (test code = 785-6) 30.8 pg 27-34 MCHC (test code = 786-4) 34.6 g/dL 31-37 RDW - SD (test code = 40914-3) 40.2 fL 37-55 MPV (test code = 89794-2) 8.7 fL 8.8-13.2 L Platelet count (test code = 77054-8) 168 150- 400 k/uL Nucleated RBC (test code = 47193-5) 0.00 /100 WBC Neutrophils (test code = 91267-3) 59.4 % 39-69 Lymphocytes (test code = 23129-0) 24.0 % 25-45 L Monocytes (test code = 83661-7) 8.4 % 0-10 Eosinophils (test code = 95593-5) 6.6 % 0-5 H Basophils (test code = 27552-4) 1.1 % 0-1 H Immature granulocytes (test code = 35983-6) 0.5 % 0-1 "Immature granulocytes" (promyelocytes, myelocytes, metamyelocytes) Lab Interpretation (test code = 13432-7) Abnormal [facility] SHOULDER W IA CONTRAST [id number] 11:38:03Hm Interface, Radiology Results 07/30/2019 11:41 AM CDTEXAMINATION: MRI SHOULDER W IA CONTRAST LEFTCLINICAL HISTORY: M19.012 Primary osteoarthritis left shoulder, PRIMARY OSTEOARTHRITIS OF LEFT SHOULDERTECHNIQUE: Multiplanar m ultisequence MR images of the left shoulder were obtained with intra-articular c ontrast.COMPARISON: None.FINDINGS: Supraspinatus tendinosis, fraying, and moder ate and high-grade partial-thickness tearing are seen at the articular and bursa l surface of the distal tendon. There is also partial thickness tearing of the a nterior infraspinatus tendon footprint.Remainder of the rotator cuff is intact, and there is normal muscle bulk. Infraspinatus muscle is diffusely increased in signal, a finding related to denervation myositis secondary to a 23 x 14 x 14 mm ganglion within the spinoglenoid notch compressing the suprascapular nerve.Tend inosis, partial tearing, and tenosynovitis of the long of the horizontal and pro ximal vertical segments of the long head biceps tendon.Chronic degeneration, fra carlene, tearing, and scar remodeling of the labrum in the superior, anterior, and posterior quadrants.Mild osteoarthritis of the acromioclavicular joint with infe rior osteophyte. Acromion is type I. No inferior displacement, downsloping, or o s acromiale. No bursitis.Areas of cartilage thinning and focal full-thickness lo ss in the glenohumeral joint. Large crown osteophyte of the humeral head. Smalle r circumferential osteophyte of the glenoid rim.Joint is well-distended with con trast, and there is mild synovitis. A couple of subcentimeter ossified loose bod ies are located within the subcoracoid bursa.IMPRESSION:1. Chronic moderate and high-grade partial-thickness tearing of the supraspinatus tendon. No full-thickn ess retracted tear.2. Tendinosis and chronic partial thickness tearing of the lo ng of the biceps tendon with mild tenosynovitis.3. Chronic multifocal labral deg eneration and nondisplaced tearing.4. Moderately severe osteoarthrosis of the gl enohumeral joint with mild synovitis and small ossified bodies in the subcoracoi d bursa.5. 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 A preprocedure timeout was performed. The left shoulder was sterilely prepped and draped in usual fashion. 1% buffered lidocaine was used for local anesthesia.Under fluoroscopic guidance, a 22-gauge spinal needle was inserted into the left glenohumeral joint. Approximately 10 cc of a mixture of dilute gadolinium solution and Omnipaque was injected under intermittent fluoroscopy. The needle was then removed, and a bandage was applied.Preprocedural internal and external rotation AP radiographs of the left shoulder, and spot fluoroscopic arthrographic images of the left shoulder in internal and external rotation, were then obtained.Total fluoroscopy time: 1 minute 6 seconds Total number of fluoroscopic images: 3Arthrographic images demonstrate distribution of contrast within the glenohumeral joint space, without contrast entering the subacromial subdeltoid bursa to imply a full-thickness rotator cuff tear. The radiographs of the left shoulder demonstrate an old healed left proximal humeral fracture and degenerati ve arthritic changes in the glenohumeral and acromial clavicular joints.IMPRESSI ON:Uncomplicated left shoulder arthrogram for MRI. The MR arthrogram will be rep orted separately.SHAYNE-[id number] Methodist
== END 2019-10-29 07:11 | disposition home or self-care (01) ==
LOC: FSED 06:20
DX: L02.415 Cutaneous abscess of right lower limb (principal)
CPT/HCPCS: 96372; 99282; J0696; J2001

== ENCOUNTER 2020-01-09 19:39 | Emergency (ER) | payer OTHER ==
[~2020-01-09] VITALS: Ht 188 cm; Wt 90.7 kg
[~2020-01-09 19:39] MED LIST changes: +CLINDAMYCIN HC300 MG PO; +DOXYCYCLINE HY100 MG PO; +IBUPROFEN IB200 MG PO; +TYLENOL # 31 EA PO
[2020-01-09] MEDS ORDERED: CLINDAMYCIN PHOS 600 MG/ 4 ML VIAL IM ONE (20:30)
[2020-01-09] MEDS ORDERED: CLINDAMYCIN HC150 MG PO (20:37)
[2020-01-09] MEDS ORDERED: DOXYCYCLINE HY100 MG PO (20:40)
[2020-01-09] MEDS ORDERED: CLINDAMYCIN PHOS 600 MG/ 4 ML VIAL ONE (20:54)
== END 2020-01-09 21:14 | disposition home or self-care (01) ==
LOC: FSED 20:01
DX: L03.114 Cellulitis of left upper limb (principal); M79.642 Pain in left hand; Z85.47 Personal history of malignant neoplasm of testis
CPT/HCPCS: 99282

== ENCOUNTER 2024-11-28 10:04 | Emergency (ER) | payer OTHER ==
[~2024-11-28] VITALS: Ht 188 cm; Wt 99.1 kg
[~2024-11-28 10:04] MED LIST changes: +CLINDAMYCIN HC150 MG PO
[2024-11-28] MEDS ORDERED: HYZAAR 100-251 EACH (10:32)
[2024-11-28] MEDS ORDERED: KETOROLAC TROMETHAMINE 30 MG/ML VIAL ONE (11:04)
[2024-11-28] MEDS: KETOROLAC TROMETHAMINE 30 MG/ML VIAL IV STA (11:37)
[2024-11-28] MEDS ORDERED: IOPAMIDOL 370 MG/ML 100 ML INFUS..BTL INJ ONE (11:46)
[2024-11-28] MEDS: SODIUM CHLORIDE 0.9% 1000ML 1,000 ML IV ONE ×2 (11:59→12:23)
[2024-11-28] MEDS ORDERED: SODIUM CHLORIDE 0.9% 1000ML 1,000 ML ONE (12:20)
[2024-11-28] MEDS ORDERED: HYDROCODON-ACE1 EA11 PO (14:54)
[2024-11-28 15:06] VITALS: PULSE 55; RESP 18; TEMP 98; O2SAT 98
== END 2024-11-28 15:06 | disposition home or self-care (01) ==
LOC: FSED 10:16
DX: M54.50 Low back pain, unspecified (principal); R10.9 Unspecified abdominal pain; N28.9 Disorder of kidney and ureter, unspecified; V43.52XA Car driver injured in collision with other type car in traffic accident, initial encounter; Y92.488 Other paved roadways as the place of occurrence of the external cause; R94.31 Abnormal electrocardiogram [ECG] [EKG]; Z85.89 Personal history of malignant neoplasm of other organs and systems
CPT/HCPCS: 74177; 80048; 81003; 85025; 93005; 96374; 99284; J1885; J7030; Q9967